=== PATIENT | male | born 1950 | race Caucasian/White ===

== ENCOUNTER 2022-07-03 11:23 | Emergency (ER) | payer MEDICARE, SELFPAY ==
[2022-07-03] VITALS (26 sets, daily range): BP systolic 141–177; BP diastolic 53–99; PULSE 54–73; RESP 15–20; TEMP 36.8; O2SAT 96–100
--- NOTE | ~2022-07-03 | CT_ITS ---
EXAMINATION: CT cervical spine wo con DATE: 07/03/2022 14:41 INDICATION: Neck pain after fall TECHNIQUE: Computed tomography (CT) of the cervical spine was performed without intravenous contrast. The dose-length product was 514 mGy-cm. Automated exposure control and iterative reconstruction tech [employer] were employed. COMPARISON: None FINDINGS: Craniovertebral junction is normal. No evidence for perched facet. There is degenerative di sc disease at C4-5, C5-6 and C6-7. Lung apices are unremarkable. There is uncinate hypertrophy at C4- 5 through C6-7. There is mild facet hypertrophy at C5-6 and C6-7. Odontoid process is normal. No sign ificant paraspinal soft tissue abnormality. Lung apices are normal. IMPRESSION: 1. No acute abnormality of the cervical spine. 2: Moderate-severe cervical spondylosis. Reviewed, dictated and finalized at location A.
--- NOTE | ~2022-07-03 | CT_ITS ---
EXAMINATION: CT chst ab pel thor lum w DATE: 07/03/2022 14:41 INDICATION: Fall from standing, right rib fractures. TECHNIQUE: Computed tomography (CT) of the chest, abdomen, pelvis, thoracic spine and lumber spine wa s performed with 100 mL Omnipaque-350 intravenous contrast. Automated exposure control and iterative reconstruction technique were employed. The dose-length product was 884.42 mGy-cm. COMPARISON: None FINDINGS: CHEST: No thoracic aortic injury. Mild ectasia and arch calcification. No mediastinal hematoma. No pericardial effusion. No acute lung injury. Mild senescent change. No pleural effusion or pneumothorax. ABDOMEN/PELVIS: No solid organ injury. 2.3 cm right lower pole cyst with irregular morphology and minimal adjacent fl uid. Additional simple renal cysts. Gallbladder hydrops. Diverticulosis, without diverticulitis. No evidence of bowel or mesenteric injury. No free fluid or free air. No retroperitoneal hematoma. Pelvic contents are atraumatic. MUSCULOSKELETAL (excluding spine): Nondisplaced right medial 11th and 12th posterior rib fractures. THORACIC SPINE: No fracture or traumatic malalignment of the thoracic spine. No severe central canal or neural forami nal narrowing. LUMBAR SPINE: Nondisplaced fractures of the right L1 and L2 transverse processes. No other fracture or traumatic ma lalignment of the lumbar spine. No severe central canal or neural foraminal narrowing. IMPRESSION: Nondisplaced right medial 11th and 12th posterior rib fractures. Nondisplaced right L1 and L2 transve rse process fractures. Likely traumatic rupture of a 2.3 cm simple right inferior pole renal cyst, wi thout renal laceration, hematoma, or contusion. No other traumatic finding in the chest, abdomen, pel vis, or T and L spine Reviewed, dictated and finalized at location K. IMPRESSION: Nondisplaced right medial 11th and 12th posterior rib fractures. Nondisplaced r ight L1 and L2 transverse process fractures. Likely traumatic rupture of a 2.3 cm simple right inferior pole renal cyst, without renal laceration, hematoma, o r contusion. No other traumatic finding in the chest, abdomen, pelvis, or T and L spine
--- NOTE | ~2022-07-03 | CT_ITS ---
EXAMINATION: CT brain wo con DATE: 07/03/2022 14:41 INDICATION: Status post fall from standing. History of glioblastoma. TECHNIQUE: Computed tomography (CT) of the head was performed without intravenous contrast. The dose- length product was 681.00 mGy-cm. Automated exposure control and iterative reconstruction technique w ere employed. COMPARISON: None FINDINGS: Study is extremely limited due to multiple metallic objects overlying the skull. The visual ized brain parenchyma is unremarkable. There is mucosal thickening of the left maxillary sinus. Crani overtebral junction is unremarkable. IMPRESSION: 1. Severely limited examination due to metallic hardware overlying the skull. No acute abnormality in the visualized brain parenchyma. Reviewed, dictated and finalized at location A. IMPRESSION: 1. Severely limited examination due to metallic hardware overlying the skull. N o acute abnormality in the visualized brain parenchyma.
--- NOTE | 2022-07-03 12:33 | ED.FALL ---
HPI - Fall General Chief Complaint: Fall Stated Complaint: sent from with broken rib Time Seen by Provider: 07/03/22 11:58 History of Present Illness HPI Narrative: This is a 71-year-old male with history of glioblastoma for the past 5 years, presenting from urgent care with finding of a single right-sided rib fracture after fall yesterday. The patient states he was bending over picking up a tray, when he lost balance, falling and striking his right side. He denies hitting his head or loss of consciousness. He complains of right mid back pain 1 out of 10 at rest and 7 out of 10 with movement. He has no other complaints today. Related Data Home Medications Medication Instructions Recorded Confirmed amlodipine 10 mg tablet 10 mg PO DAILY 12/27/20 01/08/22 citalopram 40 mg tablet (Celexa) 20 mg PO DAILY 12/27/20 01/08/22 clindamycin phosphate 1 % topical 1 applic topical DAILY 12/27/20 01/08/22 gel clobetasol 0.05 % scalp solution 1 applic topical DAILY 12/27/20 01/08/22 levetiracetam 750 mg tablet 750 mg PO Q12H 12/27/20 01/08/22 (Keppra) levothyroxine 50 mcg tablet 50 mcg PO DAILY 12/27/20 01/08/22 (Synthroid) lutein 6 mg capsule 6 mg PO DAILY 12/27/20 01/08/22 metoprolol succinate 50 mg 50 mg PO DAILY 12/27/20 01/08/22 tablet,extended release 24 hr jnjqfcno-tqn-rkdqm acid 300 1 tablet PO DAILY 12/27/20 01/08/22 mcg-lycopene 600 mcg-lutein 300 mcg tablet (Centrum Silver Men) olmesartan 40 1 tablet PO DAILY 12/27/20 01/08/22 mg-hydrochlorothiazide 25 mg tablet (Benicar HCT) olmesartan 40 1 tablet PO DAILY 01/08/22 01/08/22 mg-hydrochlorothiazide 25 mg tablet (Benicar HCT) prednisone 5 mg tablet 5 mg PO DAILY 01/08/22 01/08/22 Allergies Allergy/AdvReac Type Severity Reaction Status Date / Time Penicillins Allergy Unknown Unknown Verified 07/03/22 11:59 levothyroxine sodium Allergy Hives Verified 07/03/22 11:59 [From Synthroid] NKFA Allergy Unknown Unknown Uncoded 12/27/20 08:09 PCN V Allergy Unknown Unknown Uncoded 12/27/20 08:09 Review of Systems Review of Systems: CONSTITUTIONAL: Denies fever, chills, or sweats. EYES: Denies visual changes, redness, or discharge. ENT: Denies rhinorrhea, congestion, sore throat, or otalgia. CARDIOVASCULAR: Denies chest pain, palpitations, or edema. RESPIRATORY: Denies cough or dyspnea. GASTROINTESTINAL: Denies abdominal pain, nausea, vomiting, or diarrhea. GENITOURINARY: Denies dysuria or hematuria. SKIN: Denies rash or itching. MUSCULOSKELETAL: Right side back pain, Denies joint pain, or myalgia. NEUROLOGIC: Denies headache, numbness, dizziness, or weakness. PSYCHIATRIC: Denies anxiety or depression. [facility] Past Medical History Medical History (Updated 07/03/22 @ 15:22 by Jared Pavon MD) Glioblastoma Surgical History Surgical History (Updated 01/08/22 @ 10:18 by Sandy Fong CMA) History of craniotomy Family History Family History Father Thyroid cancer Social History Social History (Updated 01/08/22 @ 10:17 by Sandy Fong CMA) Smoking status: Never smoker Alcohol intake: current Substance use: never Substance use type: does not use Exam Narrative: GENERAL: Well-appearing, well-nourished, and in no acute distress. HEAD: Normocephalic, atraumatic, multiple leads in place over scalp EYES: PERRLA and EOMI. ENT: Nares clear, no rhinorrhea or epistaxis. Mucous membranes moist. Oropharynx without tonsillar hypertrophy exudate or other lesions. NECK: Supple. No adenopathy or masses. No carotid bruits or JVD CHEST: Clear to auscultation. No respiratory distress. No wheezes rales or rhonchi HEART: Regular rate and rhythm. No murmur heard. Normal peripheral pulses. ABDOMEN: Soft, nontender, nondistended, normal active bowel sounds. BACK: No midline spine tenderness to palpation, step-off or crepitus. Mild tenderness to palpation over th
[2022-07-03] MEDS: LIDOCAINE 5% PATCH 1 PATCH TRANSDERM (13:15)
[2022-07-03 14:25] LABS: Estimated CRCL calculation 58 ml/min; Estimated Glomerular Filt Rate 60
--- NOTE | 2022-07-03 15:00 | PC.NURSE ---
pt ambulatory to bathroom without difficulty.
== END 2022-07-03 15:35 | disposition home or self-care (01) ==
PROVIDERS: Emergency Provider Preventive Medicine Aerospace Medicine; PCP Internal Medicine
DX: S22.41XA Multiple fractures of ribs, right side, initial encounter for closed fracture (principal); S32.018A Other fracture of first lumbar vertebra, initial encounter for closed fracture; S32.028A Other fracture of second lumbar vertebra, initial encounter for closed fracture; S51.811A Laceration without foreign body of right forearm, initial encounter; Z85.841 Personal history of malignant neoplasm of brain; M47.812 Spondylosis without myelopathy or radiculopathy, cervical region; W18.39XA Other fall on same level, initial encounter
CPT/HCPCS: 70450; 71260; 72125; 72129; 72132; 74177; 99284; A9270; Q9967

== ENCOUNTER 2023-09-19 14:13 | Outpatient (CLI) | payer MEDICARE, SELFPAY ==
--- NOTE | ~2023-09-19 | US_ITS ---
EXAMINATION: US venous doppler [facility] DATE: 09/19/2023 15:31 INDICATION: Bilateral lower limb swelling TECHNIQUE: Anne scale images without and with compression and Doppler images of the bilateral lower e xtremity veins were obtained. COMPARISON: None FINDINGS: The right common femoral vein, profunda femoral vein, femoral vein, popliteal vein, peroneal trunk, p osterior tibial veins, and greater saphenous vein are patent. The left common femoral vein, profunda femoral vein, femoral vein, popliteal vein, peroneal trunk, po sterior tibial veins, and greater saphenous vein are patent. IMPRESSION: 1. Patent bilateral lower extremity veins. No evidence of deep venous thrombosis. Reviewed, dictated and finalized at location L. ER COMMENTATOR IMPRESSION: 1. Patent bilateral lower extremity veins. No evidence of deep venous thrombosi s.
== END 2023-09-19 14:14 | disposition home or self-care (01) ==
PROVIDERS: PCP Internal Medicine
DX: M79.89 Other specified soft tissue disorders (principal)
CPT/HCPCS: 93970

== ENCOUNTER 2024-06-03 23:59 | Emergency (ER) | payer MEDICARE, SELFPAY ==
--- NOTE | ~2024-06-03 | XR_ITS ---
Clinical Indication: Weakness AP and lateral views of the chest: Comparison: None Findings: Small right pleural effusion present. Left lung clear. Cardiomediastinal silhouette is wit hin normal limits. There is fracture of the right eighth, ninth, 10th ribs. Impression: Small right pleural effusion. Fractures the right eighth, ninth, and 10th ribs. Reviewed, dictated and finalized at location . Impression: Small right pleural effusion. Fractures the right eighth, ninth, and 10th ribs.
--- NOTE | ~2024-06-03 | CT_ITS ---
CT head without contrast Indication: Weakness, history of glioblastoma COMPARISON: 07/03/2022 Technique: Serial scans were obtained through the brain without the administration of contrast. Dose reduction technique was used on this scan by utilizing automated exposure control and iterative recon struction technique. The dose-length product (DLP) was 605.33 mGy-cm. Findings: There is coarse calcifications adjacent hypodensity in the superior left frontal lobe regio n, which could reflect treated disease and/or postoperative change. No intracranial hemorrhage or acu te infarct evident. The ventricles and subarachnoid spaces are dilated, consistent with mild atrophy. Minimal low attenuation regions are seen within the periventricular white matter bilaterally, likely representing changes from chronic microvascular ischemic disease. There is no evidence of midline sh ift. Superior left frontal craniotomy noted. The visualized paranasal sinuses and mastoid air cells a re clear. Impression: No definite acute abnormality seen. Coarse calcifications and adjacent hypodensity in the superior frontal lobe is most consistent with s equelae of treated disease and/or postoperative change related to history of glioblastoma. Pre and po stcontrast MR can be performed to better assess for any residual/recurrent disease, as clinically ind icated. Atrophy and chronic white matter changes, as above. Reviewed, dictated and finalized at location M. Impression: No definite acute abnormality seen. Coarse calcifications and adjacent hypodensity in the superior frontal lobe is most consistent with sequelae of treated disease and/or postoperative change re lated to history of glioblastoma. Pre and postcontrast MR can be performed to b reyna assess for any residual/recurrent disease, as clinically indicated. Atrophy and chronic white matter changes, as above.
[2024-06-04 00:26] LABS: Add Urine Microscopic? YES; Appearance Urine Clear (Clear); Bacteria Urine None Seen /hpf; Bilirubin Urine Negative (Negative); Blood Urine 2+ (Negative); Color Urine Yellow (Yellow); Glucose Urine UA Negative (Negative); Hyaline Casts Urine Present /lpf; Ketones Urine Negative (Negative); Leukocyte Esterase Ur Negative LEU/UL (Negative); Mucus Urine Present /lpf; Need Manual Microscopic Reviewed; Nitrate Urine Negative (Negative); Protein Urine 4+ mg/dL (Negative); Specific Grav Ur 1.017 (1.001-1.035); Squamous Epithelial Cell Urine None Seen /hpf (Few); Urobilinogen Urine 0.2 mg/dL (<2.0); WBC Urine 0-5 /hpf (0-3)
[2024-06-04 01:43] LABS: Glucose Point of Care 104 mg/dl (65-105)
--- NOTE | 2024-06-04 02:15 | PC.NURSE ---
Pt now states that he thinks this was just a fall and does not want the EKG and blood work ordered. Brother has left, but when returns will speak with him as well.
--- NOTE | 2024-06-04 02:44 | PC.NURSE ---
Pt's brother back and they discussed a plan. States that they will call pt's neuro oncologist this am. States that he does not feel any more out of balance than normal and is comfortable going home for the remainder of the night with his brother. Did encourage pt and brother to stay for a medical screening, however they declined.
== END 2024-06-04 02:45 | disposition left against medical advice (07) ==
LOC: ANHED 06-04 04:33
PROVIDERS: Emergency Provider Emergency Medicine; PCP Internal Medicine
DX: R53.1 Weakness (principal); W18.30XA Fall on same level, unspecified, initial encounter
CPT/HCPCS: 70450; 71046; 81001; 82948; 99199